=== PATIENT | female | born 1965 | race Two or more races ===

== ENCOUNTER 2022-10-31 11:04 | Emergency (ER) | payer OTHER ==
[2022-10-31 11:10] VITALS: BP 116/72; PULSE 79; RESP 15; TEMP 98.4; BMI 32.3
[2022-10-31] MEDS ORDERED: LIDOCAINE 5% TOPICAL PATCH TP ONE (12:19)
[2022-10-31] MEDS ORDERED: LIDOCAINE 5% TOPICAL PATCH ONE (12:25)
[2022-10-31] MEDS ORDERED: LIDOCAINE PATCH REMOVAL MC ONE (22:00)
== END 2022-10-31 12:54 | disposition home or self-care (01) ==
LOC: JERFT 11:04
DX: R07.81 Pleurodynia (principal); W01.0XXA Fall on same level from slipping, tripping and stumbling without subsequent striking against object, initial encounter; Y93.E5 Activity, floor mopping and cleaning; Y92.002 Bathroom of unspecified non-institutional (private) residence as the place of occurrence of the external cause
CPT/HCPCS: 71046-TC-FY; 99283-25